=== PATIENT | male | born 1935 | race Caucasian/White ===

== ENCOUNTER 2018-05-18 16:09 | Emergency (ER) | payer MEDICARE ==
[~2018-05-18] VITALS: Ht 172.7 cm; Wt 68.0 kg
--- NOTE | 2018-05-18 18:23 | EKG ---
[facility] [address] [facility] [place] [address] Signed Normal sinus rhythm Left axis deviation Right bundle branch block Inferior infarct , age undetermined Abnormal ECG No previous ECGs available Confirmed by LORENA YARBROUGH MD ([id number]) on 05/18/2018 6:23:14 PM Electronically Signed By: LORENA YARBROUGH MD 05/18/18 1823 PATIENT NAME: KRYSTA DORSEY Electrocardiogram DATE OF : 39 PHYSICIAN: LORENA YARBROUGH MD REPORT #: [id number] REPORT IS CONFIDENTIAL AND NOT TO BE RELEASED WITHOUT AUTHORIZATION
[2018-05-18] MEDS ORDERED: ZITHROMAX250 MG PO (19:26)
== END 2018-05-18 19:31 | disposition home or self-care (01) ==
LOC: ED 16:09
DX: T67.0XXA Heatstroke and sunstroke, initial encounter (principal); R41.82 Altered mental status, unspecified; R50.9 Fever, unspecified
CPT/HCPCS: 36415; 71045; 80053; 81001; 83605; 85025; 93005; 93010; 96361; 96365; 96375; 99283; J0456; J0696; J7030